=== PATIENT | female | born 1980 | race Caucasian/White ===

== ENCOUNTER 2023-01-10 09:02 | Outpatient (CLI) | payer OTHER, SELFPAY ==
--- NOTE | ~2023-01-10 | US_ITS ---
EXAMINATION: US pelvic complete w TV DATE: 01/10/2023 09:50 INDICATION: Pelvic pain TECHNIQUE: Multiple transabdominal and endovaginal sonographic images of the pelvis were obtained. COMPARISON: None. FINDINGS: The uterus measures 8.8 x 4.9 x 4.4 cm. The endometrial complex measures 13 mm. There is an ovoid fluid collection in the endometrial canal measuring 3 mm. The right ovary is surgically absent . The left ovary measures 3.8 x 3.2 x 2.4 cm. There is a possible 2.0 cm corpus luteum of the left ov jeff.. There is normal vascular flow in the left ovary. There is no free fluid in the pelvis. IMPRESSION: 1. Intrauterine fluid collection of unclear significance which could reflect small gestational sac. C orrelation with test is recommended. Reviewed, dictated and finalized at location L. IMPRESSION: 1. Intrauterine fluid collection of unclear significance which could reflect sm all gestational sac. Correlation with test is recommended.
== END 2023-01-10 09:03 | disposition home or self-care (01) ==
LOC: CHSIMG 09:08
PROVIDERS: PCP Family Medicine; Visit Provider Nurse Practitioner
DX: R10.2 Pelvic and perineal pain (principal); Z13.31 Encounter for screening for depression
CPT/HCPCS: 76830; 76856

== ENCOUNTER 2023-03-08 01:08 | Day surgery (SDC) | payer OTHER, SELFPAY ==
[2023-03-02 11:12] VITALS: BMI 42.1
--- NOTE | 2023-03-02 11:18 | PC.NURSE ---
Report to the Outpatient Waiting Room, entrance under the green pavilion located off [facility], at time 1100 on date 03/08/23. Planned Procedure Time: 1300. Time changes happen often and if your time is changed the preop area will call you the afternoon before. - You and your visitor will be asked to self-screen and do not enter if you have any COVID symptoms. - A mask is optional within the hospital at this time. Patients may have clear liquids (water, carbonated beverages, clear teas, apple juice) until 3 hours prior to surgery with a maximum of 20 ounces. - No food from midnight until time of surgery Take the following medications with a SIP of water the morning of surgery: NONE DO NOT STOP ANY OF YOUR OTHER PRESCRIPTION MEDICATIONS PRIOR TO SURGERY ?EXCEPT THE FOLLOWING Medications to discontinue per physician: N/A Date to take last dose: N/A Please no make-up, nail latvian, hairspray, perfume, deodorant, or body powder the day of surgery. No jewelry (including any body piercings) or valuables the day of surgery, leave them at home. Please take a shower or bath the night before, or the morning of, surgery with an antibacterial soap. Wear comfortable, loose fitting clothing. - Jewelry must be removed prior to entering the operating room. Rings and piercings that are not removed may be cut off. - The hospital will not accept responsibility for valuables. - Please leave all valuables, including medications, at home the day of surgery. If you are going home after surgery, a licensed road oiling truck driver must drive you home. - NO public transportation without another adult if you receive anesthesia. - We recommend that an adult stay with you for 24 hours following discharge. - We also recommend that you do not drive, make important decision, drink alcoholic beverages, or take any drugs that were not prescribed by your health care provider for at least 24 hours after your discharge time. Follow any additional instructions given to you from your surgeon. If you or anyone in your household have experienced Covid symptoms in the past week, please notify your surgeon or the nurse liaison at the phone number below for possible testing. Telephone instructions given to PT - ANGELI PADILLA and asked if any additional questions and then verbalized understanding. Patient advised to call surgeon office or pre surgery nurse liaison [phone] if any additional questions.
[2023-03-08 12:00] VITALS: BP 128/85; PULSE 74; RESP 18; TEMP 36.9; O2SAT 99
--- NOTE | 2023-03-08 12:23 | SUR.PREOP ---
PT AND SPOUSE AWARE OF SURGERY DELAY UNTIL 1400. BOTH VERBALIZE UNDERSTANDING AND DENY NEEDS
--- NOTE | 2023-03-08 12:47 | PM.IMHP ---
H&P: HPI History of Present Illness Date/Time: 03/08/23 12:47 Chief Complaint: Heavy periods Narrative: 42 y/o with irregular, painful menses with heavy flow and passage of clots. She was told at the time of a previous laparoscopy that she had endometriosis. She does not desire future childbearing and desires surgical management of her problem. Review of Systems Review of Systems: All systems reviewed & are unremarkable except as noted in HPI and below PMFSH Past Medical History Medical History Anxiety Chronic hypertension Surgical History Surgical History History of delivery History of cholecystectomy History of tonsillectomy and adenoidectomy Social History Social History Smoking packs per day: 0.5 Smoking cigarettes per day: 10.0 Years smoked: 20 Smoking pack-years: 10.00 Smoking status: Former smoker Tobacco type: cigarettes Smoking end date: 04/24/17 Alcohol intake: current Alcohol use details: VERY RARE Substance use: current Substance use type: marijuana Living arrangements: with family Spiritual care concerns: No Meds Home Medications and Allergies Home Medications Medication Instructions Recorded Confirmed Type citalopram 20 mg tablet 20 mg PO HS 03/02/23 03/02/23 History lisinopril 10 mg tablet 10 mg PO HS 03/02/23 03/02/23 History Allergies Allergy/AdvReac Type Severity Reaction Status Date / Time No Known Allergies Allergy Verified 03/08/23 12:30 Vital Signs Vital Signs - 24 hr 03/08/23 12:00 Temperature 36.9 C Pulse Rate 74 Respiratory Rate 18 Blood Pressure 128/85 Pulse Oximetry 99 Oxygen Delivery Room Air Exam Const: Orientation/consciousness: patient oriented x3 Other: Well-developed, well-nourished female in no acute distress. Neck: Thyroid: thyroid normal Lymphatic: no lymphadenopathy noted (in neck, axilla or inguinal nodes) Resp: Effort & Inspection: normal respiratory effort Auscultation: clear to auscultation bilaterally Cardio: Rate: regular rate Rhythm: regular rhythm Heart sounds: S1 normal heart sound present and S2 normal heart sound present GI: Other: ABD: Soft, nontender, nondistended. No guarding or rebound tenderness. No hepatosplenomegaly. : General: Yes no CVA tenderness Other: External genitalia: normal female hair distribution, without lesion. Urethral meatus: no lesion, non prolapsed. Bladder: no mass, nontender Vagina: well-estrogenized, without lesion or discharge. No cystocele or rectocele. Cervix: no lesion or discharge. Uterus: small, anteverted, freely mobile, nontender Adnexa: no mass or tenderness. Anus/perineum: no lesions, nontender Back/Spine/Pelvis: Back: no CVA tenderness Skin: General skin exam: normal color and no rashes or lesions noted Neuro: General: patient oriented x3 Extrem: Other: Extremities: nontender with no edema Psych: Mental Status: mental status grossly normal Affect: normal affect Assessment and Plan Assessment and plan (1) Menometrorrhagia: Code(s): N92.1 - Excessive and frequent menstruation with irregular cycle Status: Acute Assessment and Plan: A: Menometrorrhagia with dysmenorrhea, desired sterility. P: We have reviewed medical as well as surgical management, and she prefers the latter. Specifically, I have offered her laparoscopic bilateral tubal ligation, hysteroscopy, dilation and sharp curettage, and endometrial ablation. She understands there are temporary methods of contraception available to her. She understands that there are nonsurgical options as well as surgical options. She understands that tubal ligation will render her permanently sterile. She understands that there is a failure rate associated with tubal ligatio
--- NOTE | 2023-03-08 12:59 | P.PNAN_ITS ---
Anes - Initial Pre Proc Eval Procedure: Operation Date: 03/08/23 13:00 Proposed Procedures p Laparoscopic Bilateral Tubal Sterilization with Fallopian Rings - Simone Schafer MD s Hysteroscopy Dilation and Curettage with Eden Endometrial Ablation - Simone Schafer MD Date/Time: 03/08/23 12:59 Surgeon: Simone Schafer MD Pre Op Diagnosis: Desire Steriliz, Heav Vag Bleeding, Dysmenorrhea Patient Data Age: 42 Gender: F Height: 1.6 m Weight: 110 kg Last Vital Signs Temp 36.9 C 03/08/23 12:00 Pulse 74 03/08/23 12:00 Resp 18 03/08/23 12:00 BP 128/85 03/08/23 12:00 Pulse Ox 99 03/08/23 12:00 O2 Del Method Room Air 03/08/23 12:00 Allergies Allergy/AdvReac Type Severity Reaction Status Date / Time No Known Allergies Allergy Verified 03/08/23 12:30 Home Medications Medication Instructions Recorded Confirmed Type citalopram 20 mg tablet 20 mg PO HS 03/02/23 03/02/23 History lisinopril 10 mg tablet 10 mg PO HS 03/02/23 03/02/23 History Patient hx anesthesia problems: none Family hx anesthesia problems: none Results Review: All pre-operative results and documents have been reviewed as part of the pre- operative evaluation. [facility] Past Medical History Medical History (Updated 03/08/23 @ 13:00 by Oswaldo Diaz MD) Anxiety Chronic hypertension Morbid obesity Surgical History Surgical History History of delivery History of cholecystectomy History of tonsillectomy and adenoidectomy Social History Social History Smoking packs per day: 0.5 Smoking cigarettes per day: 10.0 Years smoked: 20 Smoking pack-years: 10.00 Smoking status: Former smoker Tobacco type: cigarettes Smoking end date: 04/24/17 Alcohol intake: current Alcohol use details: VERY RARE Substance use: current Substance use type: marijuana Living arrangements: with family Spiritual care concerns: No Anes - Eval Final PreProcedure Day of Procedure 03/08/23 12:59 Patient weight: morbidly obese Heart: regular rate and rhythm Lungs: clear to auscultation Airway: Mallampati scale class II Neurological: alert and oriented Last oral intake: >/= 8 hours ASA classification: III Emergent: no Anesthetic plan: proceed Results Review: All pre-operative results and documents have been reviewed as part of the pre- operative evaluation. Informed Consent: The patient's anesthetic plan and its attendant risks and benefits were discussed with the patient/family/POA. Questions were solicited and answers provided to the satisfaction of the patient/family/POA.
[2023-03-08] MEDS: ACETAMINOPHEN 500 MG TABLET 1000 MG PO (13:00)
[2023-03-08] MEDS: KETOROLAC 15 MG/ML VIAL (*BKC) IV PUSH (13:00)
[2023-03-08] MEDS: LACTATED RINGERS 1,000 ML 30 ML IV CONT (13:00)
[2023-03-08] MEDS: SCOPOLAMINE 1.5 MG PATCH TRANSDERM (13:00)
--- NOTE | 2023-03-08 13:07 | WPDHPUPDATE1 ---
History and Physical Update Update Date/Time: 03/08/23 13:07 History and Physical has been reviewed, including an updated exam of the patient. There are NO changes in the patient's condition. Risks, benefits, and alternatives have been discussed and questions answered. Patient agrees to proceed with procedure.
[2023-03-08] MEDS: LIDOCAINE HCL 1% LOCAL INJ 20 ML VIAL 14 ML INFILTRATE (14:25)
--- NOTE | 2023-03-08 15:08 | W.PM.PROC2 ---
Procedure Note - Detailed Date of Procedure 03/08/23 Pre-op Diagnosis Menometrorrhagia Dysmenorrhea Desired sterility Post-op Diagnosis Same Procedure Performed Laparoscopic left tubal ligation with Falope ring Hysteroscopy Dilation and sharp curettage Endometrial ablation Surgeon Simone Schafer MD Anesthesia General and Local (1% lidocaine) Findings Right Fallopian tube and ovary surgically absent. Left ovary with 1.5 cm simple cyst. Left Fallopian tube normal-appearing. Anterior cul de sac with postop changes. Posterior cul de sac unremarkable. Bilateral round and uterosacral ligaments unremarkable. endometrial cavity unremarkable. Both tubal ostia seen. Description of Procedure The patient was taken to the operating room where general endotracheal anesthesia was administered. She was prepared and draped in the usual sterile fashion in dorsal lithotomy position. The bladder was drained with a red rubber catheter. A sterile speculum was placed into the vagina. The anterior lip of the cervix was grasped with a single-tooth tenaculum. The acorn uterine manipulator was placed. The speculum was withdrawn. Gloves were changed and attention was turned the abdomen. An infraumbilical skin incision was made with a scalpel. The abdomen was tented and a 5mm bladeless trocar was advanced under direct laparoscopic visualization. Pneumoperitoneum was administered using carbon dioxide gas. A survey of the pelvis and abdomen revealed the findings noted above. A second skin incision was made in the midline above the symphysis pubis and an 8mm bladeless trocar was advanced under direct laparoscopic visualization. The fallopian tube on the left side was followed out to the fimbriated end for identification. It was then grasped in the midportion with the Falope ring applicator. The Falope ring was tented applied. A good loop of tube was noted to be distal to the ring. Hemostasis was excellent. A total of 3mL of 1% lidocaine was infiltrated into the serosa of the proximal tubes for postoperative anesthesia. The ports were withdrawn. The gas was allowed to escape. The skin incisions were reapproximated using interrupted subcuticular sutures of 4 0 Vicryl. Dermaflex was applied externally. Attention was redirected to the vagina, where the acorn manipulator was withdrawn and the speculum was reintroduced. Ten mL of 1% lidocaine was administered in a paracervical block. The cervix was then gently dilated using Hegar dilators until an 8 mm dilator could be passed. Hysteroscopy was performed using sterile saline as a distention medium. Findings are as noted above. Sharp curettage was then performed, and endometrial curettings were collected on a Telfa pad and passed off to be sent to pathology. Finally, the the Edne device was advanced and endometrial ablation commenced without difficulty. The device was withdrawn and a second look was taken using the hysteroscope. Excellent coverage of the endometrial cavity was noted. The tenaculum was removed. Hemostasis was excellent. Sponge, lap, needle and instrument counts were correct. The patient was awakened and taken to the recovery room in stable condition. I was present and scrubbed through the entire procedure. Implants Falope ring x 1 Estimated Blood Loss 5 Drains No Packing No Pathology Yes (Endometrial curettings) Complications None Condition Stable Disposition PACU
[2023-03-08 15:10] VITALS: BP 118/77; PULSE 82; RESP 20; TEMP 36.2; O2SAT 100
[2023-03-08 15:25] VITALS: BP 117/70; PULSE 76; RESP 21; O2SAT 100
--- NOTE | 2023-03-08 15:34 | SUR.PHASEI ---
1529: Simple mask removed.
[2023-03-08 15:40] VITALS: BP 121/72; PULSE 70; RESP 20; O2SAT 95
[2023-03-08 15:50] VITALS: BP 146/80; PULSE 63; RESP 20
[2023-03-08] MEDS: oxyCODONE HCL (*CRX) 5 MG TAB IR PO (16:12)
[2023-03-08 16:20] VITALS: BP 150/73; PULSE 53; RESP 20
== END 2023-03-08 16:52 | disposition home or self-care (01) ==
PROVIDERS: PCP Family Medicine; Visit Provider Obstetrics & Gynecology
PROC: (CPT 58671; principal; 2023-03-08 13:00)
PROC: 0U5B8ZZ Destruction of Endometrium, Via Natural or Artificial Opening Endoscopic (ICD-10-PCS; CPT 58563; 2023-03-08 13:00)
DX: Z30.2 Encounter for sterilization (principal); N83.292 Other ovarian cyst, left side; N94.6 Dysmenorrhea, unspecified; F41.9 Anxiety disorder, unspecified; I10 Essential (primary) hypertension; Z98.890 Other specified postprocedural states; Z87.891 Personal history of nicotine dependence; F12.90 Cannabis use, unspecified, uncomplicated; E66.01 Morbid (severe) obesity due to excess calories; Z68.41 Body mass index [BMI] 40.0-44.9, adult
CPT/HCPCS: 58671; 58563; 88305; A4264; A9270; J0330; J1100; J1885; J2250; J2405; J2704; J3010; J7120